=== PATIENT | female | born 1955 | race Caucasian/White ===

== ENCOUNTER 2023-08-18 11:54 | Day surgery (SDC) | payer MEDICARE, OTHER ==
[2023-08-18 15:12] VITALS: BP 146/81
== END 2023-08-18 15:30 | disposition home or self-care (01) ==
LOC: RAD 11:54
PROVIDERS: ATTEND Neurological Surgery
PROC: B02BYZZ Computerized Tomography (CT Scan) of Spinal Cord using Other Contrast (ICD-10-PCS; principal; 2023-08-18)
DX: M48.062 Spinal stenosis, lumbar region with neurogenic claudication (principal); M47.12 Other spondylosis with myelopathy, cervical region; M47.816 Spondylosis without myelopathy or radiculopathy, lumbar region; J45.909 Unspecified asthma, uncomplicated; I10 Essential (primary) hypertension
CPT/HCPCS: 72126; 72132; 77003

== ENCOUNTER 2023-10-05 14:35 | Outpatient (CLI) | payer MEDICARE, OTHER ==
[2023-10-05 16:55] LABS: Hematocrit 39.2 % (34.9-44.5); Hemoglobin 11.8 g/dL (12.0-15.5); Mean Corpuscular HGB CONC 30.1 g/dL (32.0-36.0); Mean Corpuscular Hemoglobin 23.4 pg (27.0-33.0); Mean Corpuscular Volume 77.6 fl (81.6-98.3); Mean Platelet Volume 9.3 fl (7.4-10.4); Platelet Count 310 10x3/uL (150-450); RBC Distribution Width 16.6 % (11.5-14.5); Red Blood Cell (RBC) Count 5.05 10x6/uL (3.90-5.03); White Blood Cell (WBC) Count 8.7 10x3/uL (3.5-10.5)
[2023-10-05 16:56] LABS: INR-International Normal Ratio 2.6; PTT 43.7 sec (22.0-33.0); Prothrombin Time 27.1 sec (9.5-12.1)
[2023-10-05 17:00] LABS: Anion Gap 15 mmol/L (10-20); BUN (Urea Nitrogen) 36 mg/dL (9.8-20.1); Calc. Creatinine Clearance 0 mL/min (70-130); Carbon Dioxide 25 mmol/L (23-31); Chloride 104 mmol/L (98-107); Estimated GFR 20; Glucose 131 mg/dL (80-115); Potassium 4.1 mmol/L (3.5-5.1); Sodium 140 mmol/L (136-145)
== END 2023-10-05 14:36 | disposition home or self-care (01) ==
LOC: LABBT 14:35
PROVIDERS: ATTEND Neurological Surgery
DX: Z01.818 Encounter for other preprocedural examination (principal); M50.20 Other cervical disc displacement, unspecified cervical region
CPT/HCPCS: 80048; 85027; 85610; 85730; 93005; 93010

== ENCOUNTER 2023-10-05 15:30 | Inpatient (IN) | payer MEDICARE, OTHER ==
[2023-10-05 15:37] VITALS: BMI 65.4
[2023-10-11] MEDS ORDERED: Vancomycin 1 GM VIAL ONE (06:19)
[2023-10-11] MEDS ORDERED: Thrombin 5000 UNITS/5 ML VIAL ONE (06:20)
[2023-10-11] MEDS ORDERED: Fentanyl 250 MCG/5 ML VIAL ONE (06:22)
[2023-10-11] MEDS ORDERED: PROPOFOL 20 ML ONE (06:22)
[2023-10-11] MEDS ORDERED: Ondansetron PF 4 MG/2 ML Vial ONE ×3 (06:22→12:30)
[2023-10-11] MEDS ORDERED: Lidocaine 1% PF 5 ML VIAL ONE ×2 (06:22→07:58)
[2023-10-11] MEDS ORDERED: Rocuronium Bromide 10 MG/ML (10ML VIAL) ONE ×2 (06:22→07:58)
[2023-10-11] MEDS ORDERED: Dexamethasone 20 MG/5 ML VIAL ONE ×2 (06:22→07:58)
[2023-10-11] MEDS ORDERED: CEFAZOLIN 2 GM VIAL ONE (06:41)
[2023-10-11] MEDS ORDERED: Sodium Chloride 0.9% 0 ML ONE (06:41)
[2023-10-11] MEDS ORDERED: Clindamycin/D5W 900 mg/50 ml Premix Bag ONE (06:48)
[2023-10-11] MEDS ORDERED: LevoFLOXacin 500 mg/D5W 100 ML BAG ONE (06:48)
[2023-10-11] MEDS ORDERED: HYDROcodone/Acetaminophen 7.5/325 mg Tablet PO PRN (06:49)
[2023-10-11] MEDS ORDERED: HYDROcodone/Acetaminophen 10/325 mg Tablet PO PRN (06:49)
[2023-10-11] MEDS ORDERED: Prochlorperazine 10 MG/2 ML VIAL IM PRN (06:49)
[2023-10-11] MEDS ORDERED: Mag-Al 1200 mg/1200 mg/30 ML UDCUP PO PRN (06:49)
[2023-10-11] MEDS ORDERED: Acetaminophen 325 MG TAB PO PRN (06:49)
[2023-10-11] MEDS ORDERED: Morphine 2 MG/ML VIAL SLOW IVP PRN (06:49)
[2023-10-11] MEDS ORDERED: diphenhydrAMINE 50 MG/ML VIAL IVP PRN (06:49)
[2023-10-11] MEDS ORDERED: Ondansetron PF 4 MG/2 ML Vial IVP PRN (06:49)
[2023-10-11] MEDS ORDERED: Milk Of Magnesia 30 ML UDCUP PO PRN (06:49)
[2023-10-11] MEDS ORDERED: tiZANidine HCl 4 MG TAB PO PRN (06:51)
[2023-10-11 07:21] LABS: INR-International Normal Ratio 1.2; PTT 27.7 sec (22.9-36.1); Prothrombin Time 15.5 sec (12.0-14.7)
[2023-10-11] MEDS ORDERED: PROPOFOL 200 MG/20 ML VIAL ONE (07:58)
[2023-10-11] MEDS ORDERED: Albuterol HFA (OR) 200 PUFF INH ONE ×2 (07:58→12:05)
[2023-10-11] MEDS ORDERED: Glycopyrrolate 0.2 MG/ML 5 ML SYRINGE ONE ×2 (07:58→11:56)
[2023-10-11] MEDS ORDERED: NEOSTIGMINE 3 MG/3 ML SYR 3 MG/3 ML SYRINGE ONE ×2 (07:58→11:56)
[2023-10-11] MEDS ORDERED: Ketamine In 0.9 % NaCl 50 MG/5 ML SYRINGE ONE (07:58)
[2023-10-11] MEDS ORDERED: HYDROmorphone 2 MG/ML VIAL SLOW IVP PRN (11:51)
[2023-10-11] MEDS ORDERED: PACU-Morphine 4MG/ML VIAL SLOW IVP PRN (11:51)
[2023-10-11] MEDS ORDERED: Promethazine HCl 25 MG/ML VIAL IM PRN (11:51)
[2023-10-11] MEDS ORDERED: Ondansetron HCl/PF 4 MG/2 ML Vial IVP PRN (11:51)
[2023-10-11] MEDS ORDERED: Morphine Sulfate 2 MG/ML SYRINGE SLOW IVP PRN (11:51)
[2023-10-11] MEDS ORDERED: Promethazine HCl 25 MG/ML VIAL ONE (12:46)
[2023-10-11] MEDS ORDERED: fentaNYL 50 mcg/mL 1 mL Vial ONE ×3 (13:37→14:42)
[2023-10-11] MEDS ORDERED: Albuterol 200 PUFF (6.7GM INHALER) INH PRN (16:21)
[2023-10-11] MEDS ORDERED: Glucagon 1 MG/ML KIT IM PRN (16:24)
[2023-10-11] MEDS ORDERED: Dextrose 5% in Water 1,000 ML IV PRN (16:24)
[2023-10-11] MEDS ORDERED: Dextrose 50% Abboject 50 ML SYRINGE SLOW IVP PRN (16:24)
[2023-10-11] MEDS ORDERED: HumaLOG 300 UNITS/3 ML VIAL SC PRN (16:24)
[2023-10-11] MEDS: Acetaminophen/Codeine 30-300mg Tablet PO PRN ×2 (16:48→22:18)
[2023-10-11] MEDS: Clindamycin/D5W 900 MG in Premix 1 BAG IVPB SCH (16:49)
[2023-10-11] MEDS: Gabapentin 300 MG CAP PO SCH ×2 (16:58→17:00)
[2023-10-11] MEDS ORDERED: Non-Formulary Item 1 EACH (Insulin Aspart [Novolog] 100 UNIT/ML Vial) SQ SCH (17:00)
[2023-10-11] MEDS ORDERED: Gabapentin 300 MG CAP PO SCH (17:00)
[2023-10-11] MEDS: Sodium Chloride 0.9% 1,000 ML IV SCH ×2 (17:01→21:07)
[2023-10-11] MEDS: HumaLOG 300 UNITS/3 ML VIAL SC PRN (18:29)
[2023-10-11] MEDS ORDERED: Montelukast Sodium 10 mg Tablet PO SCH (21:00)
[2023-10-11] MEDS ORDERED: Allopurinol 100 MG TAB PO SCH (21:00)
[2023-10-11] MEDS ORDERED: Gabapentin 400 MG CAP PO SCH (21:00)
[2023-10-11] MEDS: cloNIDine 0.1 MG TAB PO SCH (21:04)
[2023-10-11] MEDS: Insulin Glargine 30 UNITS/0.3 ML VIAL SC SCH (22:16)
[2023-10-12] MEDS: Clindamycin/D5W 900 MG in Premix 1 BAG IVPB SCH (00:54)
[2023-10-12] MEDS: Acetaminophen/Codeine 30-300mg Tablet PO PRN ×2 (03:37→08:35)
[2023-10-12 05:56] LABS: #Monocytes 0.5 thou/uL (0.11-0.59); #Neutrophils 8.6 thou/uL (1.40-6.50); %Basophils 0.1 % (0.0-1.0); %Lymphocytes 8.7 % (21.0-51.0); %Monocytes 4.7 % (0.0-10.0); %Neutrophils 85.5 % (42.0-75.0); Hematocrit 35.6 % (36.0-47.0); Hemoglobin 10.6 g/dL (12.0-16.0); Mean Corpuscular HGB CONC 29.8 g/dL (32.0-36.0); Mean Corpuscular Hemoglobin 23.6 pg (27.0-31.0); Mean Corpuscular Volume 79.1 fl (78.0-98.0); Platelet Count 240 10x3/uL (130-400); RBC Distribution Width 16.7 % (11.5-14.5)
[2023-10-12] MEDS ORDERED: Gabapentin 300 MG CAP PO SCH (06:00)
[2023-10-12] MEDS: HumaLOG 300 UNITS/3 ML VIAL SC PRN ×2 (06:03→11:56)
[2023-10-12 06:20] LABS: Anion Gap 16 mmol/L (10-20); BUN (Urea Nitrogen) 40 mg/dL (9.8-20.1); Calc. Creatinine Clearance 59 mL/min (70-130); Calcium 8.5 mg/dL (7.8-10.44); Carbon Dioxide 21 mmol/L (23-31); Chloride 103 mmol/L (98-107); Estimated GFR 23; Glucose 343 mg/dL (80-115); Potassium 4.2 mmol/L (3.5-5.1); Sodium 136 mmol/L (136-145)
[2023-10-12] MEDS: Insulin Glargine 30 UNITS/0.3 ML VIAL SC SCH (08:27)
[2023-10-12] MEDS: cloNIDine 0.1 MG TAB PO SCH (08:29)
[2023-10-12] MEDS: Sodium Chloride 0.9% 1,000 ML IV SCH (08:30)
[2023-10-12] MEDS ORDERED: Hydrochlorothiazide 25 MG TAB PO SCH (09:00)
[2023-10-12] MEDS ORDERED: Losartan 25 MG TAB PO SCH (09:00)
[2023-10-12 12:04] VITALS: BP 140/76; TEMP 97.9
[2023-10-12] MEDS ORDERED: Docusate 100 MG CAP PO PRN (12:10)
[2023-10-12] MEDS ORDERED: Polyethylene Glycol 3350 17 GM Packet PO PRN (12:10)
[2023-10-14] MEDS ORDERED: FLU VACC QS2023(65UP)/MF59C/PF 60 MCG/0.5 ML SYRINGE IM ONE (09:00)
== END 2023-10-12 12:17 | disposition home or self-care (01) | DRG 472 ==
LOC: SURG A 10-11 06:12 → SURG B 10-11 15:35
PROVIDERS: ADMIT Neurological Surgery; ATTEND Neurological Surgery
PROC: 0RG20AJ Fusion of 2 or more Cervical Vertebral Joints with Interbody Fusion Device, Posterior Approach, Anterior Column, Open Approach (ICD-10-PCS; principal; 2023-10-11)
PROC: 0RT30ZZ Resection of Cervical Vertebral Disc, Open Approach (ICD-10-PCS; 2023-10-11)
PROC: 01N10ZZ Release Cervical Nerve, Open Approach (ICD-10-PCS; 2023-10-11)
PROC: 00NW0ZZ Release Cervical Spinal Cord, Open Approach (ICD-10-PCS; 2023-10-11)
DX: M48.02 Spinal stenosis, cervical region (principal); M47.12 Other spondylosis with myelopathy, cervical region; N18.4 Chronic kidney disease, stage 4 (severe); Z68.44 Body mass index [BMI] 60.0-69.9, adult; M50.01 Cervical disc disorder with myelopathy, high cervical region; M47.22 Other spondylosis with radiculopathy, cervical region; M48.062 Spinal stenosis, lumbar region with neurogenic claudication; M50.10 Cervical disc disorder with radiculopathy, unspecified cervical region; M54.9 Dorsalgia, unspecified; M19.90 Unspecified osteoarthritis, unspecified site; J45.909 Unspecified asthma, uncomplicated; E11.22 Type 2 diabetes mellitus with diabetic chronic kidney disease; I12.9 Hypertensive chronic kidney disease with stage 1 through stage 4 chronic kidney disease, or unspecified chronic kidney disease; E78.00 Pure hypercholesterolemia, unspecified; E66.01 Morbid (severe) obesity due to excess calories; G89.29 Other chronic pain; Z90.49 Acquired absence of other specified parts of digestive tract; Z98.890 Other specified postprocedural states; Z90.710 Acquired absence of both cervix and uterus; Z98.49 Cataract extraction status, unspecified eye; Z82.49 Family history of ischemic heart disease and other diseases of the circulatory system; Z80.6 Family history of leukemia; Z86.718 Personal history of other venous thrombosis and embolism; E11.42 Type 2 diabetes mellitus with diabetic polyneuropathy
CPT/HCPCS: 36415; 36416; 80048; 85025; 85610; 85730; 93970; A4314; C1713; J1100; J1815; J1956; J2405; J2550; J2704; J3010; J3370; J3490; J7050